=== PATIENT | male | born 1955 | race Caucasian/White ===

== ENCOUNTER 2017-07-02 12:19 | Emergency (ER) | payer BC ==
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
--- NOTE | 2017-07-02 13:39 | RAD ---
Indication: Left hip pain after fall. 2 views of the left hip demonstrates no fracture. There may BE early degenerative changes of the left hip. Pelvic ring is intact. IMPRESSION: Degenerative changes of the left hip without fracture.
[2017-07-02] MEDS ORDERED: Ketorolac INJ* 60 MG/2 ML VIAL IM ONE (13:55)
== END 2017-07-02 14:47 | disposition home or self-care (01) ==
LOC: UCCORT 12:19
DX: M25.552 Pain in left hip (principal); I10 Essential (primary) hypertension; S80.212A Abrasion, left knee, initial encounter; V18.0XXA Pedal cycle driver injured in noncollision transport accident in nontraffic accident, initial encounter; Y93.55 Activity, bike riding; Y92.9 Unspecified place or not applicable; Z87.891 Personal history of nicotine dependence; Z79.82 Long term (current) use of aspirin
CPT/HCPCS: 96372; 99203; G0463; J1885

== ENCOUNTER 2018-07-26 13:27 | Emergency (ER) | payer BC ==
[2018-07-26 13:49] VITALS: BP 181/85
--- NOTE | 2018-07-26 13:59 | ED ---
Lower Extremity - HPI Summary HPI Summary: 62 yr old male with six days of left calf pain. Pain is in the medial central calf, and with mild swelling. He has had calf muscle strains before from jumping and running, but doesn't recall an injury this time. In the past he had pain in the exact same place when injuring himself. - History of Current Complaint Chief Complaint: UCLowerExtremity Stated Complaint: LT CALF COMPLAINT Time Seen by Provider: 07/26/18 13:55 Pain Intensity: 6 - Allergies/Home Medications Allergies/Adverse Reactions: Allergies Allergy/AdvReac Type Severity Reaction Status Date / Time No Known Allergies Allergy Verified 07/26/18 13:44 Home Medications: Home Medications Psyllium JAJA* [Metamucil JAJA*] 1 dose PO DAILY 07/26/18 [History Confirmed 07/26] PMH/Surg Hx/FS Hx/Imm Hx Endocrine/Hematology History: Reports: Hx Diabetes - Type 2 Cardiovascular History: Reports: Hx Hypertension - BORDERLINE Denies: Hx Pacemaker/ICD History: Denies: Hx Renal Disease Sensory History: Denies: Hx Hearing Aid Psychiatric History: Denies: Hx Panic Disorder Infectious Disease History: No Infectious Disease History: Denies: Traveled Outside the [place] in Last 30 Days - Family History Known Family History: Positive: Cardiac Disease - Social History Alcohol Use: Weekly Alcohol Amount: 1-2 drinks Substance Use Type: Reports: None Smoking Status (MU): Former Smoker Review of Systems Negative: Chest Pain Negative: Shortness Of Breath Positive: Other - calf pain All Other Systems Reviewed And Are Negative: Yes Physical Exam Triage Information Reviewed: Yes Vital Signs On Initial Exam: Initial Vitals Temp Pulse Resp BP Pulse Ox 97.0 F 73 16 181/85 98 07/26/18 13:39 07/26/18 13:39 07/26/18 13:39 07/26/18 13:39 07/26/18 13:39 Vital Signs Reviewed: Yes Appearance: Positive: Well-Appearing, No Pain Distress Skin: Positive: Warm, Skin Color Reflects Adequate Perfusion Head/Face: Positive: Normal Head/Face Inspection Eyes: Positive: EOMI ENT: Positive: Normal ENT inspection Neck: Positive: Nontender Respiratory/Lung Sounds: Positive: Clear to Auscultation, Breath Sounds Present Cardiovascular: Positive: RRR. Negative: Murmur Abdomen Description: Positive: Nontender Musculoskeletal: Positive: Edema Left - slight left calf with minimal tenderness medially. Neurological: Positive: Sensory/Motor Intact, Alert, Oriented to Person Place, Time, CN Intact II-III Psychiatric: Positive: Normal Diagnostics - Vital Signs Vital Signs Temp Pulse Resp BP Pulse Ox 07/26/18 13:39 97.0 F 73 16 181/85 98 - Laboratory Lab Statement: Any lab studies that have been ordered have been reviewed, and results considered in the medical decision making process. - Radiology venous doppler left leg Xray Interpretation: No Acute Changes Radiology Interpretation Completed By: Radiologist Lower Extremity Course/Dx - Course Course Of Treatment: 62 yr old with left calf pain. Venous doppler is negative. - Diagnoses Provider Diagnoses: Pain of left calf Discharge - Sign-Out/Discharge Documenting (check all that apply): Patient Departure All imaging exams completed and their final reports reviewed: Yes - Discharge Plan Condition: Good Disposition: HOME Patient Education Materials: Leg Cramps (ED), Hypertension (ED), Muscle Cramp ( ED) Referrals: Tomas Allison DO [Primary Care Provider] - 2 Days - Billing Disposition and Condition Condition: GOOD Disposition: Home
--- NOTE | 2018-07-26 14:34 | RAD ---
Indication: Left calf pain. Duplex Doppler sonography of the deep venous system of the left lower extremity deep venous system was performed. Bilaterally the common femoral veins appear patent and compressible. Left proximal greater saphenous vein, proximal deep femoral vein, femoral vein, popliteal vein, posterior tibial veins and peroneal veins appear patent and compressible. IMPRESSION: NO EVIDENCE OF DEEP VENOUS THROMBOSIS IS IDENTIFIED.
== END 2018-07-26 15:15 | disposition home or self-care (01) ==
LOC: UCCORT 13:27
DX: M79.605 Pain in left leg (principal); E11.9 Type 2 diabetes mellitus without complications; Z87.891 Personal history of nicotine dependence
CPT/HCPCS: 99212; G0463